=== PATIENT | female | born 1930 | race Caucasian/White ===

== ENCOUNTER 2018-02-01 07:00 | Day surgery (SDC) | payer OTHER ==
[~2018-02-01] VITALS: Ht 152.4 cm; Wt 72.6 kg
[~2018-02-01 07:00] MED LIST: AMITRIPTYLINE H10 MG PO; ASA81 MG PO; CRITIC-AID CLEAR4 GM; LOSARTAN POTASS50 MG PO; LYRICA225 MG PO; PREVACID30 M1 PO; SIMVASTATIN20 MG PO; SYNTHROID112 MCG PO; VITAMIN D10000 UNIT PO
[2018-02-01] MEDS ORDERED: COLACE100 MG PO (11:56)
[2018-02-01] MEDS ORDERED: LYRICA225 MG PO (11:58)
[2018-02-01] MEDS ORDERED: AMOX-CLAV 875-1 EACH PO (11:58)
[2018-02-01] MEDS ORDERED: CLONAZEPAM1 MG PO (11:58)
[2018-02-01] MEDS ORDERED: PERCOCET 5-3251 EACH PO (11:58)
== END 2018-02-02 08:00 | disposition home or self-care (01) ==
LOC: CIR.AMB 07:00 → SURH 09:45 → EDSTATUS 10:30 → SURH 10:30 → O/R 13:22 → PED 13:22 → CIR.AMB 02-02 08:00 → PED 02-02 12:07
DX: M48.061 Spinal stenosis, lumbar region without neurogenic claudication (principal); I10 Essential (primary) hypertension; E03.8 Other specified hypothyroidism